=== PATIENT | male | born 1945 | race American Indian/Alaskan Native ===

== ENCOUNTER 2017-02-25 10:29 | Emergency (ER) | payer OTHER, MEDICARE ==
[2017-02-25 12:03] VITALS: BP 136/81
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
== END 2017-02-25 14:48 | disposition home or self-care (01) ==
LOC: ED 10:29
DX: H81.8X3 Other disorders of vestibular function, bilateral (principal); J01.90 Acute sinusitis, unspecified; M79.1 Myalgia; R05 Cough; I10 Essential (primary) hypertension; F17.200 Nicotine dependence, unspecified, uncomplicated
CPT/HCPCS: 99282